=== PATIENT | female | born 1985 | race African-American/Black ===

== ENCOUNTER 2018-11-17 19:46 | Inpatient (IN) | payer MEDICAID ==
[2018-11-17] MEDS ORDERED: AMPICILLIN/NS 2 GM/100 ML 2 GM/100 ML BAG IV ONE (22:31)
[2018-11-17] MEDS ORDERED: XYLOCAINE 2% INFILTRATI ONE (22:31)
[2018-11-17] MEDS ORDERED: SUBLIMAZE IV PRN (22:31)
[2018-11-17] MEDS ORDERED: MINERAL OIL PO PRN (22:31)
[2018-11-17] MEDS ORDERED: BRETHINE SUB-Q PRN (22:31)
--- NOTE | 2018-11-17 22:52 | History and Physical Report ---
History of Present Illness Date of examination: 11/17/18 Date of admission: 11/17/2018 Chief complaint: Contractions History of present illness: 33 year old presents at 40wks 0 days gestation for active labor. Patient denies LOF,and vaginal bleeding. Patient receive care at [facility]. labs and records are not available. LMP is unknown. EDC 11/17/2018 per patient report. Patient denies any complications with this . labs are being drawn with this admission. Patient reports aspirin allergy. Patient has a history of HSV2 positive, has been on suppression with Valtrex. GBS is unknown. Prophylaxis ordered. Past History Past Medical History: no pertinent history Past Surgical History: no surgical history [employer] History: herpes (on Valtrex suppression therapy) Family/Genetic History: none Social history: lives with family, full code. denies: smoking, alcohol abuse, prescription drug abuse, IV drug use - Obstetrical History Expected Date of Delivery: 11/17/18 Actual Gestation: 40 Week(s) 0 Day(s) : 2 Para: 1 Hx # Term Pregnancies: 1 Number of Pregnancies: 0 Spontaneous Abortions: 0 Induced : 0 Number of Living Children: 1 Medications and Allergies Allergies Allergy/AdvReac Type Severity Reaction Status Date / Time aspirin AdvReac Hives Verified 11/17/18 23:12 Home Medications Medication Instructions Recorded Confirmed Last Taken Type Vit Calc,Iron,Folic 1 each PO DAILY 01/22/16 01/22/16 01/21/16 23:00 History [ Vitamins] 1 HYDROcodone/APAP 5-325 [[place] 1 each PO Q6H PRN #20 tablet 01/23/16 Unknown Rx 5-325 mg TAB] Ibuprofen [Motrin 800 MG tab] 800 mg PO Q8HR PRN #90 tablet 01/23/16 Unknown Rx Active Meds: Active Medications Ephedrine Sulfate (Ephedrine Sulfate) 10 mg IV Q2M PRN PRN Reason: Hypotension Fentanyl (Sublimaze) 100 mcg IV Q2H PRN PRN Reason: Labor Pain Ampicillin Sodium (Polycillin/Ns 2 Gm/100 Ml) 2 gm in 100 mls @ 100 mls/hr IV ONCE ONE; Protocol Stop: 11/17/18 23:30 Lactated Ringer's (Lactated Ringers) 1,000 mls @ 125 mls/hr IV DIRECT MAXIMILIANO Oxytocin/Sodium Chloride (Pitocin/Ns 20 Unit/1000ml Drip) 20 units in 1,000 mls @ 125 mls/hr IV DIRECT MAXIMILIANO Ampicillin Sodium (Ampicillin/Ns 1 Gm/50 Ml) 1 gm in 50 mls @ 100 mls/hr IV Q4HR MAXIMILIANO; Protocol Mineral Oil (Mineral Oil) 30 ml PO QHS PRN PRN Reason: Constipation Terbutaline Sulfate (Brethine) 0.25 mg SUB-Q ONCE PRN PRN Reason: Hyperstimulation/Hypertonicity Valacyclovir HCl (Valtrex) 500 mg PO BID [facility] Review of Systems All systems: negative (Positive HSV and labor) - Vital Signs Vital signs: Vital Signs Pulse BP 92 H 103/65 11/17/18 21:09 11/17/18 21:09 Temp Pulse Resp BP Pulse Ox 81 89/58 11/17/18 21:48 11/17/18 21:48 - Physical Exam Cardiovascular: Regular rate, Normal S1, Normal S2 Lungs: Positive: Clear to auscultation, Normal air movement Abdomen: Positive: normal appearance, soft. Negative: tenderness Genitourinary (Female): Positive: normal external genitalia, normal perenium, perineal/vulvar lesions (No lesions seen on careful exam with bright light) Vagina: Positive: normal moisture Uterus: Positive: enlarged Anus/Rectum: Positive: normal perianal skin Extremities: Positive: normal. Negative: edema - Obstetrical FHR: auscultation normal, category 1 Uterine Contraction Monitor Mode: External Cervical Dilatation: 4 Cervical Effacement Percentage: 80 station: -2 Uterine Contraction Pattern: Regular Uterine Contraction Intensity: Moderate Results All other labs normal. Assessment and Plan A: 40wks 0 day gestation Active labor Gbs Unknown HSV2 positive, no lesions P: Admit to L&D GBS prophylaxis Continue Valtrex suppression Epidural SUKHDEEP Clancy/Ana Martin CNM
[2018-11-17] MEDS ORDERED: PITOCin/NS 20 UNIT/1000ML DRIP 20 UNITS/1,000 ML BAG IV SCH (23:00)
[2018-11-17] MEDS: LACTATED RINGERS 1,000 ML IV SCH (23:00)
[2018-11-17] MEDS ORDERED: VALTREX PO SCH (23:00)
[2018-11-17 23:55] LABS: Hematocrit 37.6 % (30.3-42.9); Hemoglobin 12.8 gm/dl (10.1-14.3); Mean Corpuscular HGB Conc 34 % (30-34); Mean Corpuscular Volume 94 fl (79-97); Platelet Count 182 K/mm3 (140-440); Red Blood Count 4.01 M/mm3 (3.65-5.03); Red Cell Distribution Width 13.6 % (13.2-15.2)
[2018-11-18] MEDS ORDERED: NARCAN 2 MG/2 ML IV PRN (00:56)
--- NOTE | 2018-11-18 00:58 | Anesthesia Consultation ---
Anesthesia Consult and Med Hx - Airway Anesthetic Teeth Evaluation: Good ROM Head & Neck: Adequate Mental/Hyoid Distance: Adequate Mallampati Class: Class II Intubation Access Assessment: Probably Good - Pulmonary Exam CTA: Yes - Cardiac Exam Cardiac Exam: RRR - Pre-Operative Health Status ASA Pre-Surgery Classification: ASA2 Proposed Anesthetic Plan: Epidural - Pulmonary Hx Smoking: No Hx Asthma: No COPD: No Hx Pneumonia: No - Cardiovascular System Hx Hypertension: No - Central Nervous System Hx Seizures: No Hx Psychiatric Problems: No - Gastrointestinal Hx Gastroesophageal Reflux Disease: Yes - Endocrine Hx Renal Disease: No Hx End Stage Renal Disease: No Hx Hypothyroidism: No Hx Hyperthyroidism: No - Hematic Hx Anemia: No Hx Sickle Cell Disease: No - Other Systems Hx Alcohol Use: No
--- NOTE | 2018-11-18 00:59 | Anesthesia Day of Surgery ---
Anesthesia Day of Surgery - Day of Surgery Patient Examined: Yes Patient H&P Reviewed: Yes Patient is NPO: Yes Beta Blockers: No Cardiac Clearance: No Pulmonary Clearance: No Rajesh's Test: N/A
[2018-11-18] MEDS ORDERED: fentaNYL-BUPIV 2 MCG/ML-0.125% 200 MCG/100 ML BAG EPIDURAL SCH (01:00)
--- NOTE | 2018-11-18 01:03 | Event Note ---
Date: 11/18/18 SVE 580/-2/BBOW. Patient has just received epidural and is comfortable.
[2018-11-18] MEDS: LACTATED RINGERS 1,000 ML IV SCH (01:08)
[2018-11-18] MEDS ORDERED: AMPICILLIN/NS 1 GM/50 ML 1 GM/50 ML BAG IV SCH (02:35)
[2018-11-18] MEDS ORDERED: BICITRA PO ONE (04:43)
[2018-11-18] MEDS ORDERED: REGLAN IV ONE (04:43)
[2018-11-18] MEDS ORDERED: PEPCID IV ONE (04:43)
--- NOTE | 2018-11-18 04:52 | Event Note ---
Date: 11/18/18 FHR tracing with mild tachycardia and minimal to absent variability for past 15 minutes. A few late appearing FHR decels noted. FSE applied; small amount of bloody fluid noted with AROM. Cervix 6/80/-1. Oxygen applied per face mask at 10 LPM. Temp. 98.1. Consulted Dr. Jones re: patient and heart rate tracing. Dr. Jones states he will perform section for nonreassuring heart rate tracing. Discussed this plan with patient and family and patient and family state they are in agreement with section.
[2018-11-18] MEDS ORDERED: XYLOCAINE MPF 2% ONE ×2 (04:53→04:54)
[2018-11-18] MEDS ORDERED: PITOCin/NS 20 UNIT/1000ML DRIP 20 UNITS/1,000 ML BAG IV SCH ×2 (05:00→07:00)
[2018-11-18] MEDS ORDERED: ANCEF/STERILE WATER 2 GM/20 ML 2 GM/20 ML SYRINGE IV NR (05:00)
[2018-11-18] MEDS ORDERED: LACTATED RINGERS 1,000 ML IV SCH (05:00)
[2018-11-18] MEDS ORDERED: WATER FOR IRRIG STERILE IR ONE (05:18)
[2018-11-18] MEDS ORDERED: NACL 0.9% IR ONE (05:18)
[2018-11-18] MEDS ORDERED: ZOFRAN ONE (05:28)
--- NOTE | 2018-11-18 06:01 | Operative Report ---
Operative Report Operative Report: Date of procedure: 11/18/2017 Pre-operative diagnosis: 1. Intrauterine at 40-1/7 weeks in labor 2. Nonreassuring surveillance Post-operative diagnosis: Same Procedure name(s): Primary low transverse section Surgeon: Darren Jones MD President Celebrity Acquistion: Benjie Anesthesia: Epidural anesthesia by Dr. Parra EBL: 450 mls Findings: A 3467 g female . Apgars 8 at 1 minute and 9 at 5 minutes. Nuchal cord 1. Normal uterus. Normal tubes and ovaries bilaterally. Procedure: After the patient was prepped and draped in usual sterile fashion, and after satisfactory level of epidural anesthesia was obtained, the skin knife was used to make a transverse skin incision. The incision was excised down to layer of the fascia, which was nicked in the midline and extended laterally using the Bovie cautery. The rectus muscles were dissected off the rectus fascia both superiorly and inferiorly. The rectus bellies in the midline, and the peritoneum was entered under direct visualization. The peritoneal incision was extended superiorly and inferiorly. A bladder flap was created and the bladder blade was then placed. The uterus was scored in a curvilinear linear fashion, entered in the midline revealing clear amniotic fluid. The infant's head was delivered onto the surgical field, nuchal cord 1 reduced and the oropharynx and nasopharynx were bulb suctioned. The rest of the infant's body was delivered, cord was doubly clamped and cut and the infant was handed to the waiting respiratory team. Cord blood was then obtained. The placenta was manually removed from the uterus, and the uterus removed from its normal anatomical position. After gentle uterine lavage, the incision was inspected and found to be without extensions. It was then closed in 2 layers using 0 Vicryl suture in a running interlocking fashion, the second layer imbricating the first. After good hemostasis was achieved, copious amounts or irrigation was performed, and the gutters were suctioned free of blood and blood clots. Tisseel sealant was sprayed across the uterine incision. The uterus was then returned to its normal anatomical position, and after excellent hemostasis assured, the peritoneum was re-approximated using 3-0 Vicryl suture in a running interlocking fashion, and then the rectus muscles were re-approximated using 3-0 Vicryl suture in a [id number] configuration. The fascia was then re- approximated using 0 Vicryl suture in running interlocking fashion. The subcutaneous layer was made hemostatic using Bovie cautery, the Tisseel sealant was sprayed across the fascial incision and the skin edges re-approximated using 4-0 Vicryl suture in a sub-cuticular fashion. Patient tolerated the procedure well was transported to recovery in stable condition.
[2018-11-18] MEDS ORDERED: SENOKOT PO PRN (06:04)
[2018-11-18] MEDS ORDERED: MILK OF MAGNESIA PO PRN (06:04)
[2018-11-18] MEDS ORDERED: ZOFRAN IV PRN (06:04)
[2018-11-18] MEDS ORDERED: MYLICON PO PRN (06:04)
[2018-11-18] MEDS ORDERED: TUCKS PAD TP PRN (06:04)
[2018-11-18] MEDS ORDERED: LANSINOH TP PRN (06:04)
[2018-11-18] MEDS ORDERED: NARCAN 0.4 MG/1 ML IV PRN (06:04)
[2018-11-18] MEDS: TORADOL IV PRN ×2 (06:37→12:43)
[2018-11-18] MEDS ORDERED: D5LR 1,000 ML IV SCH (07:00)
[2018-11-18] MEDS ORDERED: SODIUM CHLORIDE FLUSH SYRINGE 10 ML IV PRN (07:00)
[2018-11-18] MEDS ORDERED: DILAUDID IV PRN ×2 (07:17→07:23)
[2018-11-18] MEDS ORDERED: DILAUDID ONE (07:24)
[2018-11-18] MEDS: PERCOCET 5/325 PO PRN ×2 (09:50→16:27)
[2018-11-18] MEDS: ANCEF/NS 1 GM/50 ML 1 GM/50 ML BAG IV SCH ×2 (13:41→21:27)
[2018-11-18 18:23] LABS: Hematocrit 32.4 % (30.3-42.9)
[2018-11-18] MEDS: NORCO 5/325 PO PRN (21:25)
[2018-11-18] MEDS: FEOSOL PO SCH (21:26)
[2018-11-19] MEDS: NORCO 5/325 PO PRN (00:53)
[2018-11-19] MEDS: PERCOCET 5/325 PO PRN ×3 (05:19→17:22)
[2018-11-19] MEDS ORDERED: BOOSTRIX IM ONE (06:00)
[2018-11-19] MEDS ORDERED: M-M-R II VACCINE SUB-Q ONE (06:08)
--- NOTE | 2018-11-19 09:31 | Progress Note ---
Assessment and Plan - Patient Problems (1) S/P primary low transverse Current Visit: Yes Status: Acute Plan to address problem: POD 1 - stable Continue routine postop orders Ambulation encouraged, as tolerated Abdominal binder ordered prn Anticipate discharge in 24-48 hours Subjective - Subjective Date of service: 11/19/18 Principal diagnosis: POD #1; s/p Primary LTCS Patient reports: appetite normal, voiding normally, pain well controlled, flatus, ambulating normally, no dizzy ambulation, no bowel movement [place]: doing well, bottle feeding Objective - Vital Signs Latest vital signs: Vital Signs Temp Pulse Resp BP BP Pulse Ox 11/19/18 07:18 97.8 F 80 18 98/65 11/19/18 05:19 18 11/18/18 21:25 14 11/18/18 20:15 97.7 F 79 16 106/63 11/18/18 16:27 20 11/18/18 15:45 98.7 F 78 18 98/58 11/18/18 12:43 20 11/18/18 12:28 98.6 F 83 18 103/62 95 11/18/18 09:50 18 Intake and Output 11/18/18 11/19/18 11/19/18 23:59 07:59 15:59 Intake Total 620 480 Output Total 600 300 Balance 20 180 Intake: Oral 320 480 Intake, Free Water 300 Output: Urine 600 300 Indwelling Catheter 600 Void 300 Other: Total, Intake Amount 320 480 Total, Output Amount 600 300 # Voids Void 0 1 - Exam Cardiovascular: Present: Regular rate Lungs: Present: Clear to auscultation Abdomen: Present: normal appearance, soft Vulva: both: normal Uterus: Present: normal, firm, fundal height below umbilicus Incision: Present: normal, dry, intact, dressed Comments: scant lochia
[2018-11-19] MEDS: FEOSOL PO SCH ×2 (10:04→21:38)
[2018-11-19] MEDS: PRENATAL VITAMIN PO SCH (10:04)
[2018-11-20] MEDS: PERCOCET 5/325 PO PRN ×3 (00:09→13:26)
[2018-11-20 08:25] VITALS: BP 101/65
--- NOTE | 2018-11-20 10:05 | Progress Note ---
Assessment and Plan 1) S/P primary low transverse Current Visit: Yes Status: Acute Plan to address problem: POD 2 - stable Continue routine postop orders Ambulation encouraged, as tolerated Abdominal binder PRN Anticipate discharge today Undecided on Contraception Subjective - Subjective Date of service: 11/20/18 Principal diagnosis: POD #2; s/p Primary LTCS Patient reports: appetite normal, voiding normally, pain well controlled, flatus, ambulating normally, no bowel movement : doing well, bottle feeding Objective - Vital Signs Latest vital signs: Vital Signs Temp Pulse Resp BP BP Pulse Ox 11/20/18 07:45 98.3 F 80 20 101/65 97 11/19/18 23:47 98.3 F 82 18 101/58 98 11/19/18 16:08 98 F 84 18 100/63 Intake and Output 11/19/18 11/20/18 11/20/18 23:59 07:59 15:59 Intake Total 600 120 120 Balance 600 120 120 Intake: Oral 600 120 120 Other: Total, Intake Amount 120 120 120 # Voids Void 1 1 1 - Exam Breasts: Present: normal Cardiovascular: Present: Regular rate, Normal S1, Normal S2, No murmurs Lungs: Present: Clear to auscultation, Normal air movement Abdomen: Present: normal appearance, soft, normal bowel sounds Vulva: both: normal Uterus: Present: firm, fundal height below umbilicus (1) Extremities: Present: normal Deep Tendon Reflex Grade: Normal +2 Incision: Present: normal, dry, intact, dressed (Pressure dressing CDI)
--- NOTE | 2018-11-20 10:06 | Discharge Summary ---
Providers - Providers Date of Admission: 11/17/18 23:03 Date of discharge: 11/20/18 Attending physician: VALENTE MORALES MD Primary care physician: VALENTE MORALES MD Hospitalization Reason for admission: IUP at term Delivery: Procedure: primary low transverse Procedure details: See Operative note Incision: normal, dry, intact (LTI, CDI) Other procedures: none complications: none Discharge diagnosis: IUP at term delivered Condition at discharge: Good Disposition: DC-01 TO HOME OR SELFCARE Plan - Discharge Medications Prescriptions: Ferrous Sulfate [Feosol 325 MG tab] 325 mg PO BID #60 tablet HYDROcodone/APAP 5-325 [[place] 5/325] 1 each PO Q6HR PRN #30 tablet PRN Reason: Pain Pnv No.95/Ferrous Fum/Folic AC [ Vitamin Tablet] 1 each PO DAILY #30 tablet - Provider Discharge Summary Activity: routine, no sex for 6 weeks, no heavy lifting 4 weeks, no strenuous exercise Diet: routine Instructions: routine Additional instructions: [] Smoking cessation referral if applicable(refer to patient education folder for contact #) [] Refer to [facility] Booklet Call your doctor immediately for: * Fever > 100.5 * Heavy vaginal bleeding ( >1 pad per hour) * Severe persistent headache * Shortness of breath * Reddened, hot, painful area to leg or breast * Drainage or odor from incision. * Keep incision clean and dry at all times and follow doctor's instructions regarding bathing/showering - Follow up plan Follow up: VALENTE MORALES MD [Primary Care Provider] - 7 Days
[2018-11-20] MEDS: PRENATAL VITAMIN PO SCH (11:11)
[2018-11-20] MEDS: FEOSOL PO SCH (11:11)
== END 2018-11-20 15:50 | disposition home or self-care (01) | DRG 765 ==
LOC: TRG 19:46 → LD 23:03 → OB 11-18 09:24
PROVIDERS: ADMIT Obstetrics & Gynecology; ATTEND Obstetrics & Gynecology
PROC: 10D00Z1 Extraction of Products of Conception, Low, Open Approach (ICD-10-PCS; principal; 2018-11-18)
PROC: 3E0234Z Introduction of Serum, Toxoid and Vaccine into Muscle, Percutaneous Approach (ICD-10-PCS; 2018-11-19)
DX: O76 Abnormality in fetal heart rate and rhythm complicating labor and delivery (principal); O98.52 Other viral diseases complicating childbirth; O69.81X0 Labor and delivery complicated by cord around neck, without compression, not applicable or unspecified; O99.62 Diseases of the digestive system complicating childbirth; B00.9 Herpesviral infection, unspecified; K21.9 Gastro-esophageal reflux disease without esophagitis; Z88.6 Allergy status to analgesic agent; Z3A.40 40 weeks gestation of pregnancy; Z37.0 Single live birth; Z79.899 Other long term (current) drug therapy; Z23 Encounter for immunization
CPT/HCPCS: 36415; 59025; 85014; 85018; 85027; 86592; 86706; 86762; 86850; 86900; 86901; 87806; 88307; 90707; G0378; J0290; J0690; J1170; J1885; J2405; J2590; J2765; J3010; J7120; J7121